=== PATIENT | female | born 1960 | race Caucasian/White ===

== ENCOUNTER → 2019-04-14 09:45 | Outpatient (CLI) | payer OTHER, SELFPAY ==
--- NOTE | 2019-04-14 09:47 | DI.MG.S_ITS ---
BILATERAL DIGITAL SCREENING MAMMOGRAM 3D/2D WITH CAD POST LUMPECTOMY: 04/14/2019 CLINICAL: Routine screening. Personal history of left breast cancer. Family history of breast cancer. Comparison is made to exams dated: 05/17/2017 breast MRI, 01/25/2017 mammogram - [facility], and 07/15/2014 mammogram - [facility]. There are scattered fibroglandular elements in both breasts. Current study was also evaluated with a Computer Aided Detection (CAD) system. There are benign calcifications in the left breast. There also are benign post operative findings in the left breast. No significant masses, calcifications, or other findings are seen in either breast. There has been no significant interval change. IMPRESSION: There is no mammographic evidence of malignancy. A 1 year screening mammogram is recommended. This exam was interpreted at Station ID: [id number]. NOTE: For mammograms, a report in lay terms will be sent to the patient. Approximately 15% of breast malignancies will not be visualized mammographically. In the management of a palpable breast mass, a negative mammogram must not discourage biopsy of a clinically suspicious lesion. Electronically Signed By: Kianna bennett/heydi:04/14/2019 11:41:51 copy to: [facility] Ritchie letter sent: Normal Exam ACR BI-RADS Category 2: Benign Finding(s) 3342F
== END ==
PROVIDERS: PCP Physician Assistant Medical; Referring Provider Physician Assistant Medical; Visit Provider Physician Assistant Medical
DX: Z12.31 Encounter for screening mammogram for malignant neoplasm of breast (principal); Z85.3 Personal history of malignant neoplasm of breast; Z80.3 Family history of malignant neoplasm of breast
CPT/HCPCS: 77063; 77067

== ENCOUNTER → 2021-07-23 07:42 | Outpatient (CLI) | payer OTHER, MEDICAID, SELFPAY ==
--- NOTE | 2021-07-23 07:47 | DI.MG.S_ITS ---
BILATERAL DIGITAL SCREENING MAMMOGRAM 3D/2D WITH CAD: 07/23/2021 CLINICAL: Routine screening. Personal history of left breast cancer. Family history of breast cancer. Comparison is made to exams dated: 04/14/2019 mammogram - [facility], 04/05/2016 mammogram - [facility], 01/25/2017 mammogram - [facility], and 07/15/2014 mammogram - [facility]. There are scattered fibroglandular elements in both breasts. Current study was also evaluated with a Computer Aided Detection (CAD) system. There are benign calcifications in the left breast. There also are benign post operative findings in the left breast. No significant masses, calcifications, or other findings are seen in either breast. There has been no significant interval change. IMPRESSION: BENIGN There is no mammographic evidence of malignancy. A 1 year screening mammogram is recommended. This exam was interpreted at Station ID: [id number]. NOTE: For mammograms, a report in lay terms will be sent to the patient. Approximately 15% of breast malignancies will not be visualized mammographically. In the management of a palpable breast mass, a negative mammogram must not discourage biopsy of a clinically suspicious lesion. Electronically Signed By: Kashif stauffer/heydi:07/23/2021 12:09:54 copy to: [facility] Ritchie letter sent: Normal Exam ACR BI-RADS Category 2: Benign Finding(s) 3342F
== END ==
PROVIDERS: PCP Physician Assistant Medical; Referring Provider Physician Assistant Medical; Visit Provider Physician Assistant Medical
DX: Z12.31 Encounter for screening mammogram for malignant neoplasm of breast (principal); Z85.3 Personal history of malignant neoplasm of breast; Z80.3 Family history of malignant neoplasm of breast
CPT/HCPCS: 77063; 77067

== ENCOUNTER → 2021-08-03 13:43 | Outpatient (CLI) | payer OTHER, MEDICAID, SELFPAY ==
--- NOTE | 2021-08-03 | DI.NM.S_ITS ---
PROCEDURE: NM OSCAR PERF SPECT REST & STR Rest and exercise myocardial perfusion SPECT with gated imaging and ejection fraction RADIOPHARMACEUTICAL: 26.9 mCi Tc-99m sestamibi IV at rest and 25.7 mCi Tc-99m sestamibi IV at peak exercise. A 2-cpu-rxwjyeci was performed. INDICATIONS: Other chest pain TECHNIQUE: Radiopharmaceutical was injected at peak stress test, and also at rest. SPECT images were obtained. SPECT myocardial perfusion images were displayed in short axis, horizontal long axis, and vertical long axis views. Gated images were reviewed using [employer] software. COMPARISON: None. CARDIAC STRESS: A standard [facility] treadmill exercise tolerance test was performed by the patient under the supervision of an attending staff. The patient exercised for 5 minutes and 52 seconds; 7.0 MEST; functional aerobic impairment (ENRIQUE) is +13%%. Hemodynamic data: There is normal blood pressure and heart rate response to exercise stress. Patient achieved 97% of maximum predicted heart rate at peak exercise. Maximum blood pressure 190/100. Symptoms: Patient denied chest pain during exercise. EKG: No diagnostic EKG changes of ischemia; no ectopy. FINDINGS: Raw data: There is good myocardial labeling by radiotracer. No significant motion artifacts. Whwu-vz-fjjao ratio is 0.53 (normal is less than 0.38 for sestamibi tracer, and less than 0.50 for thallium tracer). Left ventricle function: Gated images demonstrate normal left ventricle wall thickening. No segmental wall motion abnormality. No transient ischemic dilation; TID is 0.69 (normal less than 1.3). The left ventricle resting end-diastolic volume is 64 mL. Left ventricle stress ejection fraction is >75%; normal values are above 45%. Myocardial perfusion: There is normal distribution of activity in the left and right ventricular myocardium. No fixed or reversible perfusion defects. IMPRESSION: No evidence of exercise-induced ischemia on ECG or SPECT imaging. Normal blood pressure response to exercise. Reduced exercise capacity. Dictated by: Charlee Prater D.O. on 08/04/2021 at 12:51 Approved by: Charlee Prater D.O. on 08/04/2021 at 12:54
[2021-08-03 14:28] LABS: COVID19 -Nasal RAPID Negative (Negative)
--- NOTE | 2021-08-03 15:30 | PM.TREADMILL ---
Cardiac Stress Test Report Referral & Results Date Patient Seen: 08/03/21 Time Patient Seen: 15:30 Requesting provider: Rut William Indication: Chest pain Rest ECG: Sinus rhythm with T wave inversion and downsloping in III & aVF Procedure Note: Standard [facility] protocol, 5:52 minutes, 6.1 METS Reduced exercise capacity, ENRIQUE +13% Normal hemodynamic response to exercise. Hypertensive at baseline. Accelerated heart rate response to exercise No chest pain or anginal symptoms No significant ST changes at peak exercise Rare PVC Impression: Normal exercise stress test Nuclear images pending Please note: Actual ECG tracings can be found in the PACS system.
== END ==
PROVIDERS: PCP Physician Assistant Medical; Referring Provider Physician Assistant Medical; Visit Provider Physician Assistant Medical
DX: R07.89 Other chest pain (principal); Z20.822 Contact with and (suspected) exposure to COVID-19
CPT/HCPCS: 78452; 87635; 93017; A9502

== ENCOUNTER → 2021-08-06 09:22 | Outpatient (CLI) | payer OTHER, MEDICAID, SELFPAY ==
--- NOTE | 2021-08-06 | DI.US.S_ITS ---
LIMITED ULTRASOUND OF LEFT BREAST: 08/06/2021 CLINICAL: Palpable left breast lumps. Comparison is made to exams dated: 08/06/2021 mammogram, 07/23/2021 mammogram, 04/14/2019 mammogram, 01/25/2017 mammogram - [facility], and 04/05/2016 mammogram - [facility]. Color flow and real-time ultrasound of the left breast 2 o'clock and 11 o'clock regions were performed. Rivero scale images of the real-time examination were reviewed. There are benign post operative findings and post surgical scars in the left breast at 2 and 11 o'clock that correlate with mammography and reported palpable abnormalities. IMPRESSION: BENIGN There is no sonographic evidence of malignancy. Return to annual mammogram screening schedule is recommended. This exam was interpreted at Station ID: [id number]. Electronically Signed By: Natalio flores/heydi:08/06/2021 14:06:58 copy to: [facility] Ritchie letter sent: Clinical Evaluation Ultrasound BI-RADS: 2 Benign
--- NOTE | 2021-08-06 | DI.MG.S_ITS ---
UNILATERAL LEFT DIGITAL DIAGNOSTIC MAMMOGRAM 3D/2D POST LUMPECTOMY: 08/06/2021 CLINICAL: Left breast pain and lump. Comparison is made to exams dated: 07/23/2021 mammogram, 04/14/2019 mammogram, and 01/25/2017 mammogram - [facility]. There are scattered fibroglandular elements in left breast. There are stable benign post operative findings in the left breast in the upper outer quadrant that correlate with palpable abnormality. There also are stable benign post operative findings in the left breast in the upper inner quadrant that correlate with palpable abnormality. No significant masses, calcifications, or other findings are seen in the breast. IMPRESSION: INCOMPLETE: NEEDS ADDITIONAL IMAGING EVALUATION Targeted ultrasound is recommended for further evaluation and will be performed immediately following this exam. This exam was interpreted at Station ID: [id number]. NOTE: For mammograms, a report in lay terms will be sent to the patient. Approximately 15% of breast malignancies will not be visualized mammographically. In the management of a palpable breast mass, a negative mammogram must not discourage biopsy of a clinically suspicious lesion. Electronically Signed By: Natalio Bergman M.D. ar/:08/06/2021 14:04:52 copy to: [facility] Ritchie [facility] BI-RADS Category 0: Incomplete 3340F
== END ==
PROVIDERS: PCP Physician Assistant Medical; Referring Provider Physician Assistant Medical; Visit Provider Physician Assistant Medical
DX: N63.21 Unspecified lump in the left breast, upper outer quadrant (principal)
CPT/HCPCS: 76642; 77065; G0279

== ENCOUNTER → 2021-08-14 17:26 | Outpatient (CLI) | payer OTHER, MEDICAID, SELFPAY ==
--- NOTE | 2021-08-14 | DI.MRI.S_ITS ---
PROCEDURE: MR HEAD/BRAIN WO/W CON INDICATIONS: MULTIPLE SCLEROSIS TECHNIQUE: Noncontrast axial T1 spin echo, axial T2 fast spin echo, sagittal and axial FLAIR, coronal T2 fast spin echo, axial gradient echo, axial diffusion and ADC through the brain. After the administration of contrast, axial and coronal and sagittal 3D VIBE or T1 spin echo with fat saturation through the brain. COMPARISON: None. FINDINGS: Image quality: Excellent. CSF Spaces: Basal cisterns are patent. No extra-axial fluid collections. Ventricles are normal in size and shape. Brain: No midline shift. No intracranial bleeds or masses. No abnormal intracranial enhancement. The brainstem appears normal. Diffusion-weighted images demonstrate no acute ischemic insults. No chronic ischemic insults. Normal intravascular flow voids are present. Dural sinuses demonstrate normal postcontrast enhancement. Skull and face: Calvarial marrow is normal in signal. Orbits appear normal. Sinuses: Sinuses and mastoids appear clear. IMPRESSION: 1. No intracranial disease process. 2. No abnormal intracranial signal or suspicious postcontrast enhancement Dictated by: Ritika Smyth MD, PhD on 08/18/2021 at 12:18 Approved by: Ritika Smyth MD, PhD on 08/18/2021 at 12:24
== END ==
PROVIDERS: PCP Physician Assistant Medical; Referring Provider Physician Assistant Medical; Visit Provider Physician Assistant Medical
DX: G35 Multiple sclerosis (principal)
CPT/HCPCS: 70553; A9579

== ENCOUNTER → 2021-08-20 10:20 | Outpatient (CLI) | payer OTHER, MEDICAID, SELFPAY ==
[2021-08-20 11:41] LABS: COVID19 -Nasal RAPID Negative (Negative)
== END ==
PROVIDERS: PCP Physician Assistant Medical; Referring Provider Internal Medicine; Visit Provider Internal Medicine
DX: Z20.822 Contact with and (suspected) exposure to COVID-19 (principal)
CPT/HCPCS: 87635; C9803

== ENCOUNTER → 2021-08-21 08:10 | Outpatient (CLI) | payer OTHER, MEDICAID, SELFPAY ==
--- NOTE | 2021-08-26 08:17 | PM.PFT.1 ---
Pulmonary Function Test Referral & Results Date Patient Seen: 08/21/21 Requesting provider: Peter Barkley Results: The spirometry demonstrates an FVC of 2.46 L which is 82% of predicted. The FEV1 was measured at 2.02 L which is 87% of predicted. The FEV1/FVC ratio was 82 which is 105% of predicted. Following the administration of bronchodilator there was a 30% improvement in FEF 25-75%. Lung volumes show an SVC of 2.48 L which is 89% of predicted. The diffusing capacity was measured at 23.49 which is 116% of predicted. The maximum voluntary ventilation was normal Interpretation: This study demonstrates normal pulmonary function. There was however a 30% improvement in small airway flow after bronchodilator based on the change in FEF 25-75% as above. Shape a flow volume loop is also somewhat concave suggesting the presence or least the possible presence of very mild obstructive lung disease Clinical correlation suggested
== END ==
PROVIDERS: PCP Physician Assistant Medical; Referring Provider Internal Medicine Critical Care Medicine; Visit Provider Internal Medicine Critical Care Medicine
DX: R06.09 Other forms of dyspnea (principal); J98.8 Other specified respiratory disorders
CPT/HCPCS: 94060; 94726; 94729

== ENCOUNTER → 2021-08-24 12:08 | Outpatient (CLI) | payer OTHER, MEDICAID, SELFPAY ==
--- NOTE | 2021-08-24 12:10 | DI.ECHO.S_ITS ---
[facility]---------+ [facility] +---------+ : : [address] : : : : [id number] : : : : Phone: [phone]+ Echocardiogram Report + + :Name: DIANDRA COATS Study Date: 08/24/2021 Height: 61 in : :[facility] ReadingLocation: Weight: 189 lb : : Gender: Female BSA: 1.8 m2 : :: 1960 Age: 61 yrs BP: 112/82 mmHg: :Reason For Study: Dyspnea : :Ordering Physician: JOSÉ, : :COSME Performed By: Nitin Louis : :Referring: COSME KUMAR : + + Interpretation Summary 1) Normal left ventricular thickness, size, wall motion, and systolic function (EF 55-60%). 2) Normal right ventricular size and function. 3) No significant valvular abnormalities. 4) No prior Echo available for comparison. Procedure: A two-dimensional transthoracic echocardiogram with color flow and Doppler was performed. The study quality was technically adequate. There is no prior echocardiogram noted for this patient. The patient was in normal sinus rhythm during the exam. Left Ventricle: The left ventricle is normal in size and wall thickness. Left ventricular systolic function is normal. The ejection fraction is estimated to be 55-60%. There are no focal wall motion abnormalities. Diastolic parameters suggest probable normal left ventricular diastolic function and normal filling pressures. Right Ventricle: The right ventricle is normal in size and function. Atria: Both atria are normal in size. The interatrial septum grossly appears intact with no obvious evidence for an atrial septal defect. Mitral Valve: The mitral valve is normal in structure and function. There is no mitral regurgitation noted. Aortic Valve: The aortic valve is normal in structure and function. There is no aortic valve stenosis. No aortic regurgitation is present. Tricuspid Valve: The tricuspid valve is normal in structure and function. There is a trace or physiologic amount of tricuspid regurgitation. Pulmonary artery pressures cannot be estimated because of the lack of a measurable TR jet velocity. Pulmonic Valve: The pulmonic valve is normal in structure and function. There is no pulmonic valvular regurgitation. Great Vessels: The aortic root is normal size. The dimensions of the ascending aorta are normal. The IVC is of normal diameter and collapses greater than 50% with a sniff. This suggests a low right atrial pressure of 3 mm Hg. Pericardium/ Pleura There is no pericardial effusion. There is no pleural effusion. MMode/2D Measurements & Calculations LVIDd: 4.1 cm LVOT diam: 2.0 cm LVIDs: 2.7 cm Ao root diam: 2.9 cm FS: 34.1 % asc Aorta Diam: 3.1 cm IVSd: 1.0 cm LVPWd: 0.90 cm LV lagos. diameter/BSA (cm/m^2): 2.2 LV sys. diameter/BSA (cm/m^2): 1.5 LA dimension: 3.0 cm RA long axis: 3.8 cm LA A2 area: 12.3 cm2 LA A4 area: 11.6 cm2 LA length (vol): 4.1 cm LA vol: 29.7 ml LA vol index: 16.1 ml/m2 TAPSE_phl: 1.7 cm Doppler Measurements & Calculations Ao V2 max: 142.0 cm/sec LVOT Max Rocael: 119.0 cm/sec Ao V2 mean: 99.8 cm/sec LV V1 max P.7 mmHg Ao max P.0 mmHg LV V1 VTI: 22.3 cm Ao mean P.0 mmHg FILI(I,D): 2.7 cm2 Ao V2 VTI: 26.3 cm FILI(V,D): 2.6 cm2 sev ratio: 0.85 FILI indexed to BSA (cm^2/m^2): 1.4 MV E max rocael: 70.3 cm/sec SV(LVOT): 70.1 ml MV A max rocael: 84.8 cm/sec MV E/A: 0.83 Med Peak E' Rocael: 11.7 cm/sec E/E' med: 6.0 Lat Peak E' Rocael: 12.2 cm/sec E/E' lat: 5.8 E/e' average: 5.9 MV dec time: 0.22 sec AV VR_phl: 0.84 MV P1/2t-pr_phl: 64.0 msec FILI(VTI)/BSA_phl: 1.4 Reading Physician:04:33 PM
== END ==
PROVIDERS: PCP Physician Assistant Medical; Referring Provider Internal Medicine Critical Care Medicine; Visit Provider Internal Medicine Critical Care Medicine
DX: R06.00 Dyspnea, unspecified (principal)
CPT/HCPCS: 93306

== ENCOUNTER → 2023-01-17 09:07 | Outpatient (CLI) | payer OTHER, MEDICAID, SELFPAY ==
--- NOTE | 2023-01-17 | DI.MG.S_ITS ---
BILATERAL DIGITAL DIAGNOSTIC MAMMOGRAM 3D/2D POST LUMPECTOMY: 01/17/2023 CLINICAL: Breast lump. Comparison is made to exams dated: 08/06/2021 mammogram, 07/23/2021 mammogram, and 04/14/2019 mammogram - [facility]. There are scattered areas of fibroglandular density in both breasts (category b / 25%-50% glandular tissue). There is a post-surgical scar with grouped dystrophic calcifications in the left breast at 1 o'clock posterior depth. This likely correlates as palpated. There are surgical clips associated with the post-surgical scar. No other significant masses, calcifications, or other findings are seen in either breast. IMPRESSION: INCOMPLETE: NEEDS ADDITIONAL IMAGING EVALUATION The post-surgical scar in the left breast may correspond as palpated. There is no other mammographic abnormality seen in the left breast to correspond with the palpable abnormality. A targeted ultrasound of the left breast is recommended and will be performed immediately following this exam. This exam was interpreted at Station ID: [id number]. NOTE: For mammograms, a report in lay terms will be sent to the patient. Approximately 15% of breast malignancies will not be visualized mammographically. In the management of a palpable breast mass, a negative mammogram must not discourage biopsy of a clinically suspicious lesion. Electronically Signed By: Ngozi Ng M.D. lk/:01/17/2023 10:08:07 copy to: [facility] Ritchie ACR BI-RADS Category 0: Incomplete [id number]
--- NOTE | 2023-01-17 | DI.US.S_ITS ---
LIMITED ULTRASOUND OF LEFT BREAST AND AXILLA: 01/17/2023 CLINICAL: Palpable left breast lump. Comparison is made to exams dated: 01/17/2023 mammogram, 08/06/2021 ultrasound, 08/06/2021 mammogram, and 07/23/2021 mammogram - [facility]. Color flow ultrasound of the left breast axilla was performed on the areas of interest. Rivero scale images of the real-time examination were reviewed. There are benign post operative changes, surgical clips, and calcified fat necrosis in the left breast at 1 o'clock that correlate with palpable abnormality. IMPRESSION: BENIGN There is no sonographic evidence of malignancy. Post operative changes that correspond as palpated. There is no other mammographic or sonographic abnormality seen in the left breast to correspond with the palpable abnormality at 1 o'clock. A 1 year screening mammogram is recommended. This exam was interpreted at Station ID: [id number]. Electronically Signed By: Ngozi Ng M.D. lk/:01/17/2023 17:29:47 copy to: [facility] Ritchie letter sent: Normal Exam Ultrasound BI-RADS: 2 Benign
== END ==
PROVIDERS: PCP Physician Assistant Medical; Referring Provider Physician Assistant Medical; Visit Provider Physician Assistant Medical
DX: R92.2 Inconclusive mammogram; N64.1 Fat necrosis of breast
CPT/HCPCS: 76642; 77066; G0279

== ENCOUNTER 2023-08-30 08:59 | Emergency (ER) | payer OTHER, MEDICAID, SELFPAY ==
[2023-08-30] VITALS (10 sets, daily range): BP systolic 137–146; BP diastolic 63–79; PULSE 61–70; RESP 16–25; TEMP 36.9–37.1; O2SAT 95–99; BMI 21.1
--- NOTE | 2023-08-30 09:16 | DI.CT.S_ITS ---
PROCEDURE: CT STROKE INDICATIONS: Positive BE-FAST, Stroke symptoms TECHNIQUE: Noncontrast 4.5 mm thick angled axial sections acquired from the foramen magnum to the vertex, with coronal reformats. For radiation dose reduction, the following was used: automated exposure control, adjustment of mA and/or kV according to patient size. COMPARISON: None. FINDINGS: Image quality: Diagnostic. CSF spaces: Basal cisterns are patent. No extra-axial fluid collections. Ventricles are normal in size and shape. Brain: No midline shift. No intracranial masses or hemorrhage. Rivero-white matter interface is normal. Skull and face: Calvarium and visualized facial bones are intact, without suspicious lesions. Sinuses: Visualized sinuses and mastoids are clear. IMPRESSION: No acute intracranial pathology. Findings discussed with Dr. Jelly Busby in the emergency room at 09:43 hours. This study fulfills neurological imaging criteria for inclusion or exclusion of acute stroke therapies based on available published neurological imaging guidelines. Dictated by: Kianna Dorantes M.D. on 08/30/2023 at 9:43 Approved by: Kianna Dorantes M.D. on 08/30/2023 at 9:45
--- NOTE | 2023-08-30 09:16 | DI.RAD.S_ITS ---
PROCEDURE: XR CHEST 1V INDICATIONS: Possible stroke TECHNIQUE: One view of the chest was acquired. COMPARISON: None. FINDINGS: Surgical changes and devices: Left lumpectomy Lungs and pleura: Lungs are clear. No pleural effusions or pneumothorax. Mediastinum: Mediastinal contours appear normal. Heart size is normal. Bones and chest wall: No suspicious bony lesions. Overlying soft tissues appear unremarkable. IMPRESSION: No acute cardiopulmonary abnormality is seen. Dictated by: Alex Griffiths M.D. on 08/30/2023 at 10:07 Approved by: Alex Griffiths M.D. on 08/30/2023 at 10:07
--- NOTE | 2023-08-30 09:20 | ED.GENADULT ---
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 Patient states she noticed issues Tuesday she was very fatigued, she went to feed her horses and mixed up per routine thought she had fed them when she had not. She went to her new job had forgotten everything they had told her the day before, had difficulty relaying conversations from patient's to other staff and noted it seemed to be more expressive aphasia. Patient states she is continued to feel similar she states her speech seems to be improving. She also noted some tingling of her lips and right cheek. She states that has also been improving. She has had a mild headache, denies any fevers no cold cough or congestive symptoms. No persistent tingling. No weakness of her extremities she has had normal range of motion with no weakness of upper or lower extremities. She did note she was sort of veering off balance when she was walking but could correct if she focused. Patient states no chest pain, no shortness of breath, no nausea or vomiting no other GI or urinary symptoms. Patient states she did have some numbness tingling type symptoms in the past which was when she was reported to have a brainstem lesion years ago saw Neurology and was ultimately cleared. She states they told her was either MS related to hepatitis vaccine. Patient last saw neurology a year ago. She has not had any additional episodes or events until today. States her only daily medication is levothyroxine, was treated with breast cancer with lumpectomy and radiation, had 2nd lumpectomy for necrotic tissue but was malignancy free. She has had prior cholecystectomy. States has adverse reactions to sulfa and avoids vaccinations. No tobacco, alcohol or recreational drugs. She does use CBD tincture at night for insomnia. CHRISTOPHE William is her primary care provider. Last saw neurology a year ago in [place]. Related Data Home Medications Medication Instructions Recorded Confirmed levothyroxine 25 mcg tablet Unknown PO ##0 04/29/16 (Synthroid) propranolol 20 mg tablet 20 mg PO QDAY PRN ##0 04/29/16 hydrochlorothiazide 25 mg tablet Unknown ##0 11/23/16 Previous Rx's Medication Instructions Recorded oxycodone-acetaminophen 5 mg-325 0 tab PO Q4HP PRN #30 tabs 11/29/16 mg tablet (Percocet) ondansetron 4 mg disintegrating 4 mg sublingual Q6HP PRN ##20 11/30/16 tablet (Zofran ODT) peg 3350-electrolytes 236 240 ml PO Q10M #4,000 mL 01/21/23 gram-22.74 gram-6.74 gram-5.86 gram solution (Golytely) Allergies Allergy/AdvReac Type Severity Reaction Status Date / Time hepatitis B virus vaccine Allergy Severe PATIET HAS Unverified 05/25/17 11:49 [HEPATITIS B VIRUS VACCINE] LESION O NADIRA FROM SERUM sulfamerazine [SULFAMERAZINE] Allergy Severe Unverified 05/25/17 11:49 Anesthetics - Amide Type - AdvReac Intermediate PATIENT Unverified 05/25/17 11:49 Select A UNSUE OF [ANESTHETICS - AMIDE TYPE] GAS NAME-NAUSEA Review of Systems Review of Systems ROS Unobtainable: All systems reviewed & are unremarkable except as noted in HPI and below Patient History Surgical History Status post bilateral salpingo-oophorectomy (BSO) (11/29/16) Status post laparoscopic supracervical hysterectomy (11/29/16) Social History Smoking Status: Never smoker Exam Narrative Exam Narrative: GEN: well nourished, well appearing female, alert and oriented x 3, patient appears to be in mild distress. HEENT: Atraumatic, pupils are equal round reactive to light, extraocular movements are intact, nares are clear, TMs are clear with no fluid, there is no conjunctival pallor. Throat is clear without any exudates, erythema, tonsillar enlargement or uvular deviation, HEART: Regular rate and rhythm without murmur, clicks, rubs. LUNGS:Lungs clear to auscultation, no wheezes, rales, crackles, chest moves symmetrically ABD:bowel sounds normal, soft, non-tender, no guarding, rebound, rigidity, no masses noted, no hepatosplenomegaly :No CVA tenderness MSCL: Non-tender, no muscle atrophy, muscles strength 5/5 upper and lower extremities, full range of motion, normal gait NEURO:CN 2-12 intact, sensation normal, finger nose finger test normal, heel martin test normal. No dysarthria or aphasia. SKIN: No rash, erythema or skin changes. Initial Vital Signs Initial Vital Signs: Vital Signs Temperature 98.8 F 08/30/23 09:05 Pulse Rate 64 08/30/23 09:05 Respiratory Rate 16 08/30/23 09:05 Blood Pressure 141/79 H 08/30/23 09:05 Pulse Oximetry 97 08/30/23 09:05 Oxygen Delivery Method Room Air 08/30/23 09:05 Scores NIH Stroke Scale Level of Conciousness: Alert, keenly responsive Ask month/age: Answers both questions correctly. Open/close eyes, close hand: Performs both tasks correctly Best gaze horizontal: Normal Visual andrade: No visual loss Facial palsy: Normal symetrical movement Left arm drift: No drift for full 10 sec Right arm drift: No drift for full 10 sec Left leg drift: No drift for full 5 sec Right leg drift: No drift for full 5 sec Limb ataxia: Absent Sensory on face/arms/legs: Normal, no sensory loss Best language: No aphasia, normal Dysarthria: Normal Extinction or inattention: No abnormality Total NIH Stroke scale score: 0 Course Orders Ordered: ED Orders 08/30/23 09:16 CT Stroke Stat XR chest 1V Stat Complete Blood Count AUTO DIFF Stat Comprehensive Metabolic Panel Stat ETOH [Ethanol (ETOH)] Stat Magnesium Stat PTT Partial Thromboplastin Adam Stat Prothrombin Time INR Stat Troponin & CK Cardiac Panel Stat EKG-12 Lead Stat 08/30/23 09:23 CT angio head and neck Stat 08/30/23 09:58 Urine Drug Screen, Rapid Stat 08/30/23 10:33 MR head/brain wo con Stat Discontinued Medications Ondansetron HCl (Ondansetron 4 Mg/2 Ml Inj) 4 mg IV NOW PRN PRN Reason: Nausea And Vomiting Ondansetron HCl (Ondansetron 4 Mg Odt) 4 mg SL NOW PRN PRN Reason: Nausea And Vomiting Vital Signs Vital signs: Vital Signs - 8 hr 08/30/23 09:05 08/30/23 09:05 08/30/23 09:06 Temperature 98.8 F Pulse Rate 64 Respiratory Rate 16 Blood Pressure 141/79 H 141/79 H Pulse Oximetry 97 95 Oxygen Delivery Method Room Air 08/30/23 09:06 08/30/23 09:41 08/30/23 09:43 Temperature Pulse Rate 68 63 70 Respiratory Rate 25 H Blood Pressure Pulse Oximetry 98 95 96 Oxygen Delivery Method 08/30/23 09:43 08/30/23 10:01 08/30/23 10:30 Temperature Pulse Rate 69 64 Respiratory Rate 17 23 Blood Pressure 146/63 H Pulse Oximetry 97 99 Oxygen Delivery Method 08/30/23 11:25 08/30/23 11:30 08/30/23 12:00 Temperature Pulse Rate 67 64 Respiratory Rate 18 21 Blood Pressure Pulse Oximetry 96 99 97 Oxygen Delivery Method 08/30/23 12:37 Temperature 98.5 F Pulse Rate 61 Respiratory Rate 19 Blood Pressure 137/63 Pulse Oximetry 99 Oxygen Delivery Method Room Air Medical Decision Making Lab Data 08/30/23 09:16 08/30/23 09:16 Labs: Lab Results 08/30/23 08/30/23 Range/Units 09:16 09:58 WBC 5.3 (4.5-11.0) X10^3/uL RBC 4.58 (4.0-5.2) X10^6/uL Hgb 14.6 (12.0-16.0) g/dL Hct 43.5 (36-46) % MCV 95.0 (80-100) fL MCH 31.8 (26-34) PG MCHC 33.5 (30-36) % RDW 13.1 (11.6-14.8) % Plt Count 294 (150-400) X10^3/uL Neut % (Auto) 70.6 (50-75) % Lymph % (Auto) 19.6 L (25-40) % [place] % (Auto) 6.8 (3-14) % Eos % (Auto) 1.9 L (2-4) % Baso % (Auto) 1.1 (0-2) % Neut # (Auto) 3800 (6734-3536) /uL Lymph # (Auto) 1000 L (5406-9649) /uL [place] # (Auto) 400 (0-900) /uL Eos # (Auto) 100 (0-450) /uL Baso # (Auto) 100 (0-100) /uL PT 12.4 (9.4-12.5) SECONDS INR 1.1 (0.9-1.3) APTT 30 (25.1-36.5) SECONDS Sodium 137 (137-145) mmol/L Potassium 4.5 (3.4-5.1) mmol/L Chloride 111 H (98-107) mmol/L Carbon Dioxide 21 L (22-32) mmol/L BUN 16 (7-17) mg/dL Creatinine 0.54 (0.52-1.04) mg/dL Estimated GFR > 60 (>60) mL/min BUN/Creatinine Ratio 29.6 H (6-22) Glucose 104 (80-110) mg/dL Calcium 9.2 (8.4-10.2) mg/dL Magnesium 2.3 (1.6-2.3) mg/dL Total Bilirubin 0.7 (0.2-1.3) mg/dL AST 27 (14-36) IU/L ALT 21 (<35) IU/L Alkaline Phosphatase 85 (38-126) U/L Total Creatine Kinase 71 (30-135) U/L Troponin I 0.014 (0.01-0.034) ng/mL Total Protein 7.3 (6.3-8.2) g/dL Albumin 4.5 (3.5-5.0) g/dL Globulin 2.8 (1.7-4.1) g/dL Albumin/Globulin Ratio 1.6 (1.0-2.8) U Opiates 300ng/mL cut Negative (Negative) Ur Oxycodone Screen Negative (Negative) Urine Methadone Screen Negative (Negative) Ur Barbiturates Screen Negative (Negative) U Tricyclic Antidepress Negative (Negative) Ur Phencyclidine Scrn Negative (Negative) Ur Amphetamines Screen Negative (Negative) U Methamphetamines Scrn Negative (Negative) Ur MDMA Scrn (Ecstasy) Negative (Negative) U Benzodiazepines Scrn Negative (Negative) Urine Cocaine Screen Negative (Negative) U Marijuana (THC) Screen Positive H (Negative) Urine pH Normal (Normal) Urine Specific [place] Normal (Normal) Ethyl Alcohol < 10 ( - 10) mg/dL Ur Creatinine Normal (Normal) Point of Care Testing Glucose POC 99 Urine Dip Bedside Urine Glucose Negative Bedside Urine Bilirubin - Negative Bedside Urine Ketone - Negative Urine Specific [place] 1.010 Bedside Urine Occult Blood - Negative Bedside Urine pH 6.5 Bedside Urine Protein - Negative Bedside Urine Urobilinogen - Negative Bedside Urine Nitrite - Negative Bedside Urine Leukocytes - Negative Esterase Point of care testing: Point of Care Testing Glucose POC 99 Urine Dip Bedside Urine Glucose Negative Bedside Urine Bilirubin - Negative Bedside Urine Ketone - Negative Urine Specific [place] 1.010 Bedside Urine Occult Blood - Negative Bedside Urine pH 6.5 Bedside Urine Protein - Negative Bedside Urine Urobilinogen - Negative Bedside Urine Nitrite - Negative Bedside Urine Leukocytes - Negative Esterase Imaging Data CT scan - head: Radiologist's Impression: Head CT was called by Radiology is negative for acute change. CTA - brain/neck: Radiologist's Impression: CT angio shows no acute intracranial arterial abnormality no significant abnormality in the arteries neck. Severe cervical spondylosis. Findings include severe canal stenosis C5 through 6 secondary to large peripheral calcified central posterior disc protrusion. brain MR: Radiologist's Impression: [place] [address] Magnetic Resonance Report Signed Patient: Sheryl Jones MR#: [id number] : 1960 Acct:[id number] Age/Sex: 63 / F Date of Service: 08/30/23 Loc: ED Accession Number: [id number] Procedure: MR head/brain wo con Ordering Provider: Jelly Busby D.O. PROCEDURE: MR HEAD/BRAIN WO CON INDICATIONS: cva vs other, report brainstem lesion 30yr ago TECHNIQUE: Noncontrast axial T1 spin echo, axial T2 fast spin echo, sagittal and axial FLAIR, coronal T2 fast spin echo, axial gradient echo, axial diffusion and ADC through the brain. COMPARISON: [facility], CT, CT STROKE, 08/30/2023, 9:30. FINDINGS: Image quality: Excellent. CSF Spaces: Basal cisterns are patent. No extra-axial fluid collections. Ventricles are normal in size and shape. Brain: No intracranial masses or hemorrhage. [place]/white matter interface is normal. Brainstem appears normal. Diffusion-weighted images demonstrate no acute infarct. No chronic ischemic insults. Normal intravascular flow voids are present. Skull and face: Calvarium has normal marrow signal. Orbits appear normal. Sinuses: Sinuses and mastoids are clear. IMPRESSION: No acute intracranial process. Normal appearing brain parenchyma. Dictated by: Alex Griffiths M.D. on 08/30/2023 at 11:45 Approved by: Alex Griffiths M.D. on 08/30/2023 at 11:47 ECG Data Attestation: I personally reviewed and interpreted this ECG as follows: Prior ECG tracings: not available for review Interpretation: Sinus rhythm rate of 62 SC 140 QRS 82 QTC of 414. No acute ST elevation depression noted. No priors for comparison. MDM Narrative Medical decision making narrative: 63-year-old female who presents after 2 days of some confusion, numbness and tingling of her right face and she describes as some expressive aphasia little bit of balance issues that has been improving but not totally resolved. Patient notes she did have what she describes as a brainstem region at least 30 years ago told he might be MS versus a vaccine reaction. She states she had an MRI about a year ago she was told was negative. She has seen neurology in the interim most recently a year ago. She states she has not had any additional episodes but that initial 1 was some numbness tingling of her face as well. Patient's NIH today is 0. Point of care glucose is 99. Labs are not crossing over in EMR but patient's white count is 5.3 hemoglobin is 14.6 with platelets of 294, INR is 1.1 with a PTT of 30, sodium is 137 potassium 4.5 chloride of 111 with a CO2 of 21 BUN is 16 creatinine of 0.54. Glucose is 104 met calcium 9.2 with a Mag of 2.3- LFTs total CK is 71 with a troponin 0.014 ETOH is negative Head CT non-con shows no acute change. CT angio shows severe spinal stenosis and spondylitic changes but no acute changes to the vessels of the head or neck. EKG shows sinus rhythm no acute ST changes. Point of care urine is negative UDS positive for THC, otherwise negative. Discussed observation with patient she would prefer to return home was able to order an MR through the emergency department. Discussed with patient MR was obtained, this shows no acute change. Discussed with patient prefers discharge home rather than observation. Discussed need for follow-up. Patient does have primary care and has seen Urology in the past. Discharge Plan Departure Patient Disposition: Home Clinical Impression: Altered mental status Activity Restrictions/Additional Instructions: Follow up with your physician for recheck. Your imaging today does not show any acute changes such as stroke or lesions on your MRI. I do think you should follow up with your primary care physician for additional evaluation and/or neurology. Please return if you have new or worsening symptoms, sudden vision changes, severe headaches, new numbness tingling or weakness, persistent vomiting, lightheadedness or passing out difficulty with movement or speech or other new or concerning changes. Prescriptions: No Action levothyroxine [Synthroid] 25 MCG tablet Unknown PO Qty: 0 propranolol 20 MG tablet 20 mg PO QDAY PRNQty: 0 hydrochlorothiazide 25 MG tablet Unknown Qty: 0 oxycodone-acetaminophen [Percocet] 5 MG/325 MG tablet 0 tab PO Q4HP PRNQty: 30 0RF ondansetron [Zofran ODT] 4 MG tablet,disintegrating 4 mg Sublingual Q6HP PRNQty: 20 1RF peg 3350-electrolytes [Golytely] 236-22.74-6.74 -5.86 gram recon soln 240 ml PO Q10M Qty: 4000 0RF Rx Instructions: take as directed by Physician Referrals: Rut William PA-C [Primary Care Provider] - Stand Alone Forms: Patient Portal/API
--- NOTE | 2023-08-30 09:23 | DI.CT.S_ITS ---
PROCEDURE: CT ANGIO HEAD AND NECK INDICATIONS: hx of right facial numbness, confusion TECHNIQUE: After the administration of intravenous contrast, 1 mm thick sections acquired from the aortic arch through the [place]. 3-dimensional sitikxk-fihbplguj-olixovuvhm (MIP) and/or volume rendering reformats were acquired of the central intracranial vasculature and neck separately. For radiation dose reduction, the following was used: automated exposure control, adjustment of mA and/or kV according to patient size. COMPARISON: , CT, CT STROKE, 08/30/2023, 9:30. FINDINGS: Image quality: Diagnostic. BRAIN: CSF spaces: Ventricles are normal in size and shape. Basal cisterns are patent. No extra-axial fluid collections. Brain: Accompanying head CT demonstrates no acute intracranial pathology. Skull and face: Calvarium and facial bones appear intact, without suspicious lesions. Orbits appear normal. Sinuses: Sinuses and mastoids are clear. HEAD CT ANGIOGRAPHY: Anterior circulation: Intracranial internal carotid arteries are normal in size and flow. The flow within the paired anterior cerebral arteries is normal and symmetric. The flow within the middle cerebral arteries is normal and symmetric. The anterior communicating artery is seen. No aneurysms are seen. Posterior circulation: Visualized portions of the vertebral arteries demonstrate normal caliber, and join to form a normal appearing basilar artery. Flow within the posterior cerebral arteries is normal and symmetric. No aneurysms are seen. NECK CT ANGIOGRAPHY: Carotid system: The great vessels demonstrate a conventional anatomy as they arise from the aortic arch. The origins of the common carotid arteries appear patent. The common carotid arteries demonstrate normal caliber and courses. The bifurcation regions are both widely patent. The internal carotid arteries demonstrate normal calibers and courses. Posterior circulation: The origins of the vertebral arteries both appear widely patent. The more superior extracranial portions of both vertebral arteries also demonstrate normal courses and calibers. They join to form a normal appearing basilar artery. Soft tissues: Visualized neck soft tissues demonstrate no suspicious abnormalities. Bones: No suspicious bony lesions. Cervical spondylosis. There is trace anterolisthesis of C4 on C5. There is a large peripherally calcified central posterior disc protrusion at C5-C6 resulting in severe canal stenosis. Reference sagittal image 90 of series 7 and axial image 223 of series 4. There is multilevel bony foraminal narrowing. IMPRESSION: No significant intracranial arterial abnormality is seen. No significant abnormality is seen within the arteries of the neck. Severe cervical spondylosis. Findings include severe canal stenosis C5-C6 secondary to a large peripherally calcified central posterior disc protrusion. Any quantitative measurements of stenosis were performed using NASCET criteria. Dictated by: Alex Griffiths M.D. on 08/30/2023 at 10:08 Approved by: Alex Griffiths M.D. on 08/30/2023 at 10:12
[2023-08-30 09:30] LABS: Add Manual Diff / Slide Review NO; Basophils Absolute Auto 100 /uL (0-100); Basophils Percent Auto 1.1 % (0-2); Eosinophils Absolute Auto 100 /uL (0-450); Eosinophils Percent Auto 1.9 % (2-4); Hematocrit 43.5 % (36-46); Hemoglobin 14.6 g/dL (12.0-16.0); Lymphocytes Absolute Auto 1000 /uL (1100-4500); Lymphocytes Percent Auto 19.6 % (25-40); Mean Corpuscular HGB Conc 33.5 % (30-36); Mean Corpuscular Hemoglobin 31.8 PG (26-34); Monocytes Absolute Auto 400 /uL (0-900); Monocytes Percent Auto 6.8 % (3-14); Neutrophils Absolute Auto 3800 /uL (1500-7000); Neutrophils Percent Auto 70.6 % (50-75); Platelet Count 294 X10^3/uL (150-400); Red Blood Cell Count 4.58 X10^6/uL (4.0-5.2); Red Cell Distribution Width 13.1 % (11.6-14.8); White Blood Cell Count 5.3 X10^3/uL (4.5-11.0)
[2023-08-30 09:33] LABS: INR 1.1 (0.9-1.3); Prothrombin Time 12.4 SECONDS (9.4-12.5)
[2023-08-30 09:35] LABS: PTT Partial Thromboplastin Tim 30 SECONDS (25.1-36.5)
[2023-08-30 09:36] LABS: Alanine Aminotransferase 21 IU/L (<35); Albumin 4.5 g/dL (3.5-5.0); Albumin Globulin Ratio 1.6 (1.0-2.8); Alkaline Phosphatase 85 U/L (38-126); Aspartate Aminotransferase 27 IU/L (14-36); BUN Creatinine Ratio 29.6 (6-22); Bilirubin Total 0.7 mg/dL (0.2-1.3); Blood Urea Nitrogen 16 mg/dL (7-17); Calcium 9.2 mg/dL (8.4-10.2); Carbon Dioxide 21 mmol/L (22-32); Chloride 111 mmol/L (98-107); Creatine Kinase 71 U/L (30-135); Estimated Glomerular Filt Rate > 60 mL/min (>60); Globulin 2.8 g/dL (1.7-4.1); Glucose 104 mg/dL (80-110); Magnesium 2.3 mg/dL (1.6-2.3); Potassium 4.5 mmol/L (3.4-5.1); Sodium 137 mmol/L (137-145); Total Protein 7.3 g/dL (6.3-8.2)
[2023-08-30 09:38] LABS: HEMOLYSIS 90 (0-50)
--- NOTE | 2023-08-30 09:46 | EKG_ITS ---
[address] [address] Test Date: 2023-08-30 Pat Name: Sheryl Jones Department: [facility] Room: Gender: Female Leacher: ANT : 1960 Requested By: Order Number: [id number] Reading MD: Michael Godoy MD Measurements Intervals [place] Rate: 62 P: 47 OR: 140 QRS: 58 QRSD: 82 T: 43 QT: 408 QTc: 414 Interpretive Statements Normal sinus rhythm Electronically Signed On 08-30-2023 11:05:35 PDT by Michael Godoy MD
[2023-08-30 09:48] LABS: Troponin I 0.014 ng/mL (0.01-0.034)
--- NOTE | 2023-08-30 10:33 | DI.MRI.S_ITS ---
PROCEDURE: MR HEAD/BRAIN WO CON INDICATIONS: cva vs other, report brainstem lesion 30yr ago TECHNIQUE: Noncontrast axial T1 spin echo, axial T2 fast spin echo, sagittal and axial FLAIR, coronal T2 fast spin echo, axial gradient echo, axial diffusion and ADC through the brain. COMPARISON: [facility], CT, CT STROKE, 08/30/2023, 9:30. FINDINGS: Image quality: Excellent. CSF Spaces: Basal cisterns are patent. No extra-axial fluid collections. Ventricles are normal in size and shape. Brain: No intracranial masses or hemorrhage. [place]/white matter interface is normal. Brainstem appears normal. Diffusion-weighted images demonstrate no acute infarct. No chronic ischemic insults. Normal intravascular flow voids are present. Skull and face: Calvarium has normal marrow signal. Orbits appear normal. Sinuses: Sinuses and mastoids are clear. IMPRESSION: No acute intracranial process. Normal appearing brain parenchyma. Dictated by: Alex Griffiths M.D. on 08/30/2023 at 11:45 Approved by: Alex Griffiths M.D. on 08/30/2023 at 11:47
[2023-08-30 10:46] LABS: UR Morphine/Opiate cutoff 300 Negative (Negative); Ur Creatinine Normal (Normal); Ur Specific Gravity Normal (Normal); Urine Amphetamines Negative (Negative); Urine Barbiturates Negative (Negative); Urine Cocaine Negative (Negative); Urine MDMA Negative (Negative); Urine Methamphetamines Negative (Negative); Urine Phencyclidine Negative (Negative); Urine Tetrahydrocannabinol Positive (Negative); Urine pH Normal (Normal)
[2023-08-30 10:47] LABS: Urine Benzodiazepines Negative (Negative); Urine Methadone Negative (Negative); Urine Oxycodone Negative (Negative); Urine Tricyclic Antidepressant Negative (Negative)
[2023-08-30 11:12] LABS: Ethanol (ETOH) < 10 mg/dL
== END 2023-08-30 12:37 | disposition home or self-care (01) ==
PROVIDERS: Emergency Provider Emergency Medicine; PCP Physician Assistant Medical
DX: R41.82 Altered mental status, unspecified (principal); R20.2 Paresthesia of skin; R29.700 NIHSS score 0
CPT/HCPCS: 36415; 70450; 70496; 70498; 70551; 71045; 80053; 80305; 80320; 81003; 82550; 82962; 83735; 84484; 85025; 85610; 85730; 93005; 99285; Q9967

== ENCOUNTER → 2024-05-03 16:24 | Outpatient (CLI) | payer OTHER, SELFPAY ==
--- NOTE | 2024-05-03 16:26 | DI.MG.S_ITS ---
MM screening mammo BI: 05/03/2024. BI-RADS: 2 CLINICAL: 64-year old female for bilateral screening mammogram. No Tyrer-Cuzick risk score calculation due to the patient's personal history of breast cancer. Patient reports a history of left breast carcinoma diagnosed at age 50. Status-post left lumpectomy with radiation therapy and hormonal therapy. No first-degree family history of breast cancer. Current reported family history of breast cancer: maternal aunt. The patient had a prior left breast biopsy. PRIOR EXAMS 01/17/2023, 08/06/2021, 07/23/2021, 04/14/2019, 05/17/2017, 01/25/2017. MAMMOGRAPHY TECHNIQUE: 2D and 3D (tomosynthesis) digital mammographic views obtained, with additional images as needed for full coverage. Current study was also evaluated with a Computer Aided Detection (CAD) system. DENSITY B. There are scattered areas of fibroglandular density. MAMMOGRAPHY FINDINGS Right: No suspicious mass, asymmetry, microcalcification, or other abnormality seen. No significant change from comparison. Left: Benign-appearing post-surgical changes noted on the left. There are no suspicious masses, calcifications, or other findings in the breast. No significant change from comparison. IMPRESSION: Right * No evidence of malignancy. Left * No evidence of malignancy with benign findings. RECOMMENDATIONS Bilateral * Annual screening mammography. OVERALL ASSESSMENT CATEGORY BI-RADS-2: Benign. [employer] recommends annual screening mammography beginning at age 40 for women with average risk of breast cancer. ELECTRONICALLY SIGNED: Marleny Price M.D. on 05/04/2024 at 10:14:32 AM PT Interpreting Station ID: [id number]
== END ==
LOC: MAMMO 16:25
PROVIDERS: PCP Physician Assistant Medical; Referring Provider Physician Assistant Medical; Visit Provider Physician Assistant Medical
DX: Z12.31 Encounter for screening mammogram for malignant neoplasm of breast (principal); Z85.3 Personal history of malignant neoplasm of breast; Z80.3 Family history of malignant neoplasm of breast
CPT/HCPCS: 77063; 77067